=== PATIENT | male | born 1950 | race Caucasian/White ===

== ENCOUNTER 2018-07-22 12:16 | Outpatient (CLI) | payer MEDICARE, OTHER ==
--- NOTE | 2018-07-22 13:48 | RAD ---
LEFT HIP RADIOGRAPHS 2 VIEWS: DATE: 07/22/18. PROVIDED CLINICAL HISTORY: Left hip pain. FINDINGS: No comparisons. There is no evidence for a fracture or other acute osseous abnormality. Degenerativ e changes are seen involving the left hip. Left hip joint space appears preserved, however. Alignme nt appears anatomic. Degenerative and postoperative changes are partially seen involving the lower l umbar spine. IMPRESSION: Mild left hip osteoarthrosis. POS: [facility]
== END 2018-07-22 12:17 | disposition home or self-care (01) ==
LOC: NAV RAD 12:16
PROVIDERS: ATTEND Internal Medicine
DX: M25.552 Pain in left hip (principal); M16.12 Unilateral primary osteoarthritis, left hip

== ENCOUNTER 2018-09-15 10:59 | Emergency (ER) | payer MEDICARE, OTHER ==
[2018-09-15 12:33] LABS: Bilirubin Negative (Negative); Blood, Urine Trace (Negative); Clarity Clear (Clear); Glucose, Urine (Dipstick) Negative (Negative); Leukocyte Negative (Negative); Nitrite Negative (Negative); Protein, Urine (Dipstick) Trace mg/dL (Neg-Trace); Specific Gravity, Urine 1.015 (1.005-1.030); Urobilinogen 0.2 mg/dL (0.2-1.0); pH, Urine 6.5 (5.0-9.0)
[2018-09-15 12:42] LABS: Bacteria/HPF None Seen HPF (None Seen); RBC/HPF 0-3 HPF (0-3); Squamous Epithelial None Seen HPF (0-3); WBC/HPF 0-3 HPF (0-3)
--- NOTE | 2018-09-15 14:03 | CT ---
NONCONTRAST CT HEAD: Date: 09-15-18 History: Head injury after a fall. Patient fell approximately 8 ft. Positive LOC. Comparison: 07-06-16 FINDINGS: There is no evidence of an intraparenchymal or extraaxial hemorrhage. No acute infarction is seen. Th ere is no mass effect or midline shift. Ventricular system is normal in size, shape, and position. Mi ld cerebral volume loss is present. Post-surgical changes of the anterior wall right maxillary antrum and right orbit are present. There is evidence of nasal bone fracture likely related to a more remote fracture. The pinna is not visuali zed likely related to prior post-surgical changes. Metallic devices are present within the mastoid po rtion of the left temporal bone. Calvarial structures are intact without evidence of a calvarial frac ture. Mild mucosal thickening seen within the ethmoidal air cells as well as the left sphenoid sinus. IMPRESSION: 1. No acute intracranial abnormality is demonstrated. 2. Nasal bone fracture likely more remote in origin. 3. Post-surgical changes as described above. POS: [facility]
--- NOTE | 2018-09-15 14:06 | CT ---
NONCONTRAST ENHANCED CT IMAGES OF THE CERVICAL SPINE: History: Fall with injury. FINDINGS/IMPRESSION: Endovascular stent is seen in the left subclavian artery. Anterior fusion hardware seen at the C4, C5, C6 and C7 levels. There is anterior migration of the C4 and C7 screws. These appear to be extending approximately 3 mm anterior to the plate. The fused verte bral levels, however, are solid and demonstrate no evidence of re-fracture or loosening. Degenerative changes seen at the C3-4 intervertebral disc space with mild retrolisthesis of C3 on C4 and anterior osteophytes seen. The C7-T1 disc space and facets are unremarkable. No evidence of acute cervical sp ine fractures seen. POS: [facility]
[2018-09-15] MEDS ORDERED: Ibuprofen 800 MG TAB ONE (14:23)
--- NOTE | 2018-09-15 14:25 | RAD ---
PA CHEST XRAY WITH 2 VIEWS RIGHT SIDED RIBS: DATE: 09/15/2018. HISTORY: The patient fell approximately 8 feet. Loss of consciousness. The patient has right flank and side pain. FINDINGS: Postsurgical changes are again seen related to anterior cervical fusion of the lower cervic al spine, postsurgical changes left clavicle with plate and multiple screws present and ankle anchor screw again overlying the left humeral head. No obvious right-sided rib fracture is present. There is partial visualization of postsurgical benavides es of the lumbar spine with surgical clips overlying the right upper quadrant. Cardiac silhouette and pulmonary vasculature are within normal limits. There is linear scarring vers us atelectasis present at the left lung base. The lungs are otherwise clear. No pneumothorax or ple ural effusion is seen. Vascular calcification is noted in the thoracic aorta. IMPRESSION: 1. No acute cardiopulmonary process. 2. Linear scarring versus atelectasis at the left lung base. 3. No right-sided rib fracture is seen. 4. Postsurgical changes as described above. POS: [facility]
--- NOTE | 2018-09-15 14:30 | RAD ---
TWO VIEWS RIGHT FOREARM: Date: 09-15-18 History: Right forearm injury after fall. FINDINGS: There is no evidence of a fracture or dislocation. Minimal degenerative changes are seen at the level of the elbow. No other findings. IMPRESSION: No acute osseous abnormality right forearm. POS: [facility]
== END 2018-09-15 14:32 | disposition home or self-care (01) ==
LOC: NAV ERS 10:59
DX: S06.9X1A Unspecified intracranial injury with loss of consciousness of 30 minutes or less, initial encounter (principal); S00.83XA Contusion of other part of head, initial encounter; S50.11XA Contusion of right forearm, initial encounter; S23.41XA Sprain of ribs, initial encounter; I25.10 Atherosclerotic heart disease of native coronary artery without angina pectoris; I25.2 Old myocardial infarction; K21.9 Gastro-esophageal reflux disease without esophagitis; I10 Essential (primary) hypertension; Z79.82 Long term (current) use of aspirin; Z79.899 Other long term (current) drug therapy; W17.89XA Other fall from one level to another, initial encounter
CPT/HCPCS: 70450; 72125; 81003; 81015

== ENCOUNTER 2021-04-19 10:09 | Emergency (ER) | payer MEDICARE, OTHER ==
[2021-04-19 10:36] LABS: #Basophils 0.1 thou/uL (0.0-0.2); #Eosinphils 0.4 thou/uL (0.0-0.7); #Lymphocytes 1.7 thou/uL (1.20-3.40); #Monocytes 0.5 thou/uL (0.11-0.59); #Neutrophils 5.3 thou/uL (1.40-6.50); %Basophils 1.1 % (0.0-1.0); %Eosinophils 5.3 % (0.0-10.0); %Lymphocytes 21.4 % (21.0-51.0); %Monocytes 5.6 % (0.0-10.0); %Neutrophils 66.6 % (42.0-75.0); Hemoglobin 15.4 g/dL (14.0-18.0); Mean Corpuscular HGB CONC 30.6 g/dL (32.0-36.0); Mean Corpuscular Hemoglobin 28.8 pg (27.0-31.0); Mean Corpuscular Volume 94.2 fL (78.0-98.0); Platelet Count 276 thou/uL (130-400); RBC Distribution Width 13.9 % (11.5-14.5); Red Blood Cell (RBC) Count 5.33 mill/uL (4.70-6.10)
[2021-04-19] MEDS ORDERED: diphenhydrAMINE 50 MG/ML VIAL ONE (10:36)
[2021-04-19] MEDS ORDERED: Sodium Chloride 0.9% 1,000 ML ONE (10:36)
[2021-04-19] MEDS ORDERED: Famotidine/PF 20 mg/2ml Vial ONE (10:36)
[2021-04-19] MEDS ORDERED: methylPREDNISolone Sod Succ/PF 125 MG/2 ML VIAL ONE (10:36)
[2021-04-19 10:50] LABS: Anion Gap 14 mmol/L (10-20); BUN (Urea Nitrogen) 21 mg/dL (8.4-25.7); Calc. Creatinine Clearance 0 mL/min (70-130); Calcium 8.5 mg/dL (7.8-10.44); Carbon Dioxide 25 mmol/L (23-31); Chloride 109 mmol/L (98-107); Glucose 113 mg/dL (83-110); Potassium 3.8 mmol/L (3.5-5.1); Sodium 144 mmol/L (136-145)
[2021-04-19] MEDS ORDERED: Dexamethasone 20 MG/5 ML VIAL ONE (12:07)
== END 2021-04-19 12:20 | disposition home or self-care (01) ==
LOC: NAV ERS 10:09
DX: T78.40XA Allergy, unspecified, initial encounter (principal); K21.9 Gastro-esophageal reflux disease without esophagitis; I10 Essential (primary) hypertension; Z79.899 Other long term (current) drug therapy; I25.2 Old myocardial infarction
CPT/HCPCS: 80048; 85025; 96374; 96375; J1100; J1200; J2930; J7050; S0028

== ENCOUNTER 2021-12-04 16:26 | Emergency (ER) | payer MEDICARE ==
[2021-12-04] MEDS ORDERED: Boostrix 0.5 ML (Tdap) VIAL ONE (16:47)
[2021-12-04] MEDS ORDERED: Lidocaine 1% w/Epinephrine 1:100K 20 ML VIAL ONE ×2 (16:47→16:48)
[2021-12-04] MEDS ORDERED: Bacitracin 1 PK ONE (17:42)
[2021-12-04] MEDS ORDERED: Cephalexin 250 MG CAP ONE (17:42)
== END 2021-12-04 17:54 | disposition home or self-care (01) ==
LOC: NAV ERS 16:26
DX: S61.522A Laceration with foreign body of left wrist, initial encounter (principal); I25.10 Atherosclerotic heart disease of native coronary artery without angina pectoris; K21.9 Gastro-esophageal reflux disease without esophagitis; I10 Essential (primary) hypertension; F17.210 Nicotine dependence, cigarettes, uncomplicated; W26.8XXA Contact with other sharp object(s), not elsewhere classified, initial encounter
CPT/HCPCS: 12001; 90471; 90715

== ENCOUNTER 2022-09-25 21:35 | Emergency (ER) | payer MEDICARE, OTHER ==
[2022-09-25 21:54] LABS: #Basophils 0.1 thou/uL (0.0-0.2); #Eosinphils 0.8 thou/uL (0.0-0.7); #Lymphocytes 1.6 thou/uL (1.20-3.40); #Monocytes 0.8 thou/uL (0.11-0.59); #Neutrophils 5.7 thou/uL (1.40-6.50); %Basophils 1.6 % (0.0-1.0); %Eosinophils 8.5 % (0.0-10.0); %Lymphocytes 18.2 % (21.0-51.0); %Monocytes 8.6 % (0.0-10.0); %Neutrophils 63.2 % (42.0-75.0); Hemoglobin 14.5 g/dL (14.0-18.0); Mean Corpuscular HGB CONC 33.4 g/dL (32.0-36.0); Mean Corpuscular Hemoglobin 31.7 pg (27.0-31.0); Mean Platelet Volume 8.4 fL (7.4-10.4); Platelet Count 325 10x3/uL (130-400); RBC Distribution Width 14.4 % (11.5-14.5); Red Blood Cell (RBC) Count 4.57 mill/uL (4.70-6.10)
[2022-09-25] MEDS ORDERED: Lidocaine 1% (PF) 30 ML VIAL ONE (22:00)
[2022-09-25 22:05] LABS: Prothrombin Time 13.6 sec (12.0-14.7)
[2022-09-25 22:06] LABS: PTT 31.5 sec (22.9-36.1)
[2022-09-25 22:13] LABS: ALT (SGPT) 27 U/L (8-55); AST (SGOT) 30 U/L (5-34); Albumin 4.2 g/dL (3.4-4.8); Alkaline Phosphatase 81 U/L (40-110); Anion Gap 13 mmol/L (10-20); BUN (Urea Nitrogen) 20 mg/dL (8.4-25.7); Bilirubin, Total 0.5 mg/dL (0.2-1.2); Calc. Creatinine Clearance 0 mL/min (70-130); Calcium 9.4 mg/dL (7.8-10.44); Carbon Dioxide 28 mmol/L (23-31); Chloride 105 mmol/L (98-107); Estimated GFR 68; Globulin 2.8 g/dL (2.4-3.5); Glucose 101 mg/dL (83-110); Potassium 4.2 mmol/L (3.5-5.1); Sodium 142 mmol/L (136-145)
[2022-09-25] MEDS ORDERED: Bacitracin 1 PK ONE (22:54)
[2022-09-25] MEDS ORDERED: Cefdinir 300 MG CAP ONE (23:01)
== END 2022-09-25 23:12 | disposition home or self-care (01) ==
LOC: NAV ERS 21:35
DX: S61.012A Laceration without foreign body of left thumb without damage to nail, initial encounter (principal); W31.89XA Contact with other specified machinery, initial encounter
CPT/HCPCS: 12001; 80053; 83605; 85025; 85610; 85730; 86850; 86900; 86901; J2001

== ENCOUNTER 2024-06-13 11:51 | Emergency (ER) | payer MEDICARE ==
[2024-06-13] MEDS ORDERED: diphenhydrAMINE 50 MG/ML VIAL ONE (12:09)
[2024-06-13] MEDS ORDERED: methylPREDNISolone Sod Succ/PF 125 MG/2 ML VIAL ONE (12:09)
[2024-06-13] MEDS ORDERED: Famotidine/PF 20 mg/2ml Vial ONE (12:09)
== END 2024-06-13 13:45 | disposition home or self-care (01) ==
LOC: NAV ERS 11:51
DX: T63.461A Toxic effect of venom of wasps, accidental (unintentional), initial encounter (principal); F17.210 Nicotine dependence, cigarettes, uncomplicated
CPT/HCPCS: 96374; 96375; J1200; J2930; J3490

== ENCOUNTER 2024-11-16 18:38 | Emergency (ER) | payer MEDICARE ==
[2024-11-16] MEDS ORDERED: traMADol HCl 50 MG TAB ONE (18:47)
== END 2024-11-16 19:52 | disposition home or self-care (01) ==
LOC: NAV ERS 18:38
DX: S50.12XA Contusion of left forearm, initial encounter (principal); E78.5 Hyperlipidemia, unspecified; I25.10 Atherosclerotic heart disease of native coronary artery without angina pectoris; F17.210 Nicotine dependence, cigarettes, uncomplicated; Z79.82 Long term (current) use of aspirin; W22.8XXA Striking against or struck by other objects, initial encounter; Y93.89 Activity, other specified
CPT/HCPCS: 99283